=== PATIENT | female | born 1960 | race Caucasian/White ===

== ENCOUNTER 2021-01-23 22:36 | Emergency (ER) | payer OTHER ==
[~2021-01-23 22:36] MED LIST: CLEOCIN300 MG PO
[2021-01-23 23:55] LABS: BASOPHIL 0.5 % (0-2); EOSINOPHIL 1.9 % (0-5); HCT 37.2 % (37.0-47.0); HGB 12.1 g/dl (12.5-16.0); LYMPHOCYTE 19.6 % (15-48); MCH 27.9 pg (25.0-31.0); MCHC 32.5 g/dL (32.0-36.0); MCV 85.9 fL (78.0-100.0); NEUTROPHIL 68.6 % (41-80); NRBC 0; PLT 289 K/uL (150-400); RBC 4.33 M/uL (4.20-5.40); RDW 13.1 % (11.5-14.0); WBC 12.8 K/uL (4.0-10.5)
[2021-01-24 00:31] LABS: ALBUMIN 2.8 g/dL (3.4-5.0); BILIRUBIN - TOTAL 0.3 mg/dL (0.2-1.0); BUN/CREAT RATIO (CALC) 21.4 RATIO; CREATININE 0.7 mg/dL (0.51-0.95); GLOBULIN (CALCULATION) 4.2 g/dL; POTASSIUM 3.5 mmol/L (3.5-5.1)
[2021-01-24 00:40] LABS: LACTIC ACID 2.1 mmol/L (0.4-1.9)
[2021-01-24] MEDS ORDERED: NORCO 5-325 TA1 EACH PO (01:34)
[2021-01-24] MEDS ORDERED: BACTRIM DS TAB1 EAC1 PO (01:34)
[2021-01-24] MEDS ORDERED: CEPHALEXIN500 M1 PO (01:34)
== END 2021-01-24 02:00 | disposition home or self-care (01) ==
LOC: FER 22:36
PROVIDERS: Emergency Medicine Emergency Medical Services
DX: E11.621 Type 2 diabetes mellitus with foot ulcer (principal); L97.511 Non-pressure chronic ulcer of other part of right foot limited to breakdown of skin; L97.419 Non-pressure chronic ulcer of right heel and midfoot with unspecified severity; L97.521 Non-pressure chronic ulcer of other part of left foot limited to breakdown of skin; L03.032 Cellulitis of left toe; L03.031 Cellulitis of right toe; L84 Corns and callosities; R60.0 Localized edema; I10 Essential (primary) hypertension; Z88.0 Allergy status to penicillin; Z79.4 Long term (current) use of insulin
CPT/HCPCS: 36415; 73620; 80053; 83605; 84145; 85025; J1170; J1885; J2405; J3370; J7050

== ENCOUNTER 2021-01-26 16:04 | Emergency (ER) | payer OTHER ==
[~2021-01-26 16:04] MED LIST changes: +BACTRIM DS TAB1 EAC1 PO; +CEPHALEXIN500 M1 PO; +NORCO 5-325 TA1 EACH PO
[2021-01-26 19:11] LABS: BASOPHIL 0.5 % (0-2); EOSINOPHIL 1.7 % (0-5); HCT 36.4 % (37.0-47.0); HGB 11.8 g/dl (12.5-16.0); LYMPHOCYTE 16.7 % (15-48); MCHC 32.4 g/dL (32.0-36.0); MCV 86.5 fL (78.0-100.0); MONOCYTE 11.4 % (0-12); MPV 9.3 fL (6.0-9.5); NEUTROPHIL 69.3 % (41-80); NRBC 0; PLT 286 K/uL (150-400); RBC 4.21 M/uL (4.20-5.40); RDW 13.1 % (11.5-14.0); WBC 11.9 K/uL (4.0-10.5)
[2021-01-26 19:33] LABS: ALBUMIN 2.6 g/dL (3.4-5.0); BILIRUBIN - TOTAL 0.3 mg/dL (0.2-1.0); CREATININE 0.8 mg/dL (0.51-0.95); GLOBULIN (CALCULATION) 4.6 g/dL; TOTAL PROTEIN 7.2 g/dL (6.4-8.2)
== END 2021-01-26 21:02 | disposition home or self-care (01) ==
LOC: FER 16:04
PROVIDERS: Physician Assistant
DX: S92.511A Displaced fracture of proximal phalanx of right lesser toe(s), initial encounter for closed fracture (principal); L03.115 Cellulitis of right lower limb; M86.8X7 Other osteomyelitis, ankle and foot; I10 Essential (primary) hypertension; E11.9 Type 2 diabetes mellitus without complications; Z88.0 Allergy status to penicillin; X58.XXXA Exposure to other specified factors, initial encounter
CPT/HCPCS: 36415; 73630; 80053; 85025

== ENCOUNTER 2021-07-02 01:52 | Emergency (ER) | payer OTHER ==
[2021-07-02 02:14] LABS: BASOPHIL 0.6 % (0-2); EOSINOPHIL 2.7 % (0-5); HCT 40.3 % (37.0-47.0); HGB 13.1 g/dl (12.5-16.0); LYMPHOCYTE 38.5 % (15-48); MCH 28.1 pg (25.0-31.0); MCHC 32.5 g/dL (32.0-36.0); MCV 86.5 fL (78.0-100.0); MONOCYTE 9.3 % (0-12); MPV 10.5 fL (6.0-9.5); NEUTROPHIL 48.5 % (41-80); NRBC 0; PLT 238 K/uL (150-400); RBC 4.66 M/uL (4.20-5.40); RDW 12.4 % (11.5-14.0); WBC 9.7 K/uL (4.0-10.5)
[2021-07-02 02:58] LABS: ALBUMIN 3.1 g/dL (3.4-5.0); BILIRUBIN - TOTAL 0.2 mg/dL (0.2-1.0); BUN/CREAT RATIO (CALC) 20.5 RATIO; CREATININE 0.78 mg/dL (0.51-0.95); GLOBULIN (CALCULATION) 3.5 g/dL; POTASSIUM 3.5 mmol/L (3.5-5.1); TOTAL PROTEIN 6.6 g/dL (6.4-8.2)
[2021-07-02 03:08] LABS: INR 1.08 (0.9-1.2); PROTHROMBIN TIME 13.4 SECONDS (11.8-13.4); PTT 20.6 SECONDS (24.4-34.7)
== END 2021-07-02 04:00 | disposition other institution (70) ==
LOC: FER 01:52
PROVIDERS: Emergency Medicine Emergency Medical Services
DX: I45.9 Conduction disorder, unspecified (principal); E11.9 Type 2 diabetes mellitus without complications; I10 Essential (primary) hypertension; Z79.4 Long term (current) use of insulin; Z88.0 Allergy status to penicillin; Z88.1 Allergy status to other antibiotic agents
CPT/HCPCS: 36415; 71045; 71275; 80053; 84484; 85025; 85610; 85730; 93005; J1644; J3010; J3101; J7030; Q9967

== ENCOUNTER 2021-08-18 09:54 | Emergency (ER) | payer OTHER ==
[2021-08-18 10:21] LABS: BASOPHIL 0.8 % (0-2); EOSINOPHIL 3.1 % (0-5); HCT 43.7 % (37.0-47.0); HGB 14.4 g/dl (12.5-16.0); LYMPHOCYTE 21.5 % (15-48); MCH 28.3 pg (25.0-31.0); MCV 85.9 fL (78.0-100.0); MONOCYTE 6.9 % (0-12); NRBC 0; PLT 270 K/uL (150-400); RBC 5.09 M/uL (4.20-5.40); RDW 13.2 % (11.5-14.0); WBC 7.4 K/uL (4.0-10.5)
[2021-08-18 10:22] LABS: INR 1.04 (0.9-1.2); PTT 25.1 SECONDS (24.4-34.7)
[2021-08-18 10:36] LABS: ALBUMIN 3.4 g/dL (3.4-5.0); BILIRUBIN - TOTAL 0.6 mg/dL (0.2-1.0); BUN/CREAT RATIO (CALC) 17.8 RATIO; CREATININE 0.73 mg/dL (0.51-0.95); POTASSIUM 4.4 mmol/L (3.5-5.1); TOTAL PROTEIN 7.4 g/dL (6.4-8.2)
[2021-08-18] MEDS ORDERED: NAPROXEN250 MG PO (14:15)
== END 2021-08-18 14:49 | disposition home or self-care (01) ==
LOC: FER 09:54
PROVIDERS: Emergency Medicine
DX: I24.1 Dressler's syndrome (principal); I25.2 Old myocardial infarction; I25.10 Atherosclerotic heart disease of native coronary artery without angina pectoris; E11.9 Type 2 diabetes mellitus without complications; Z95.5 Presence of coronary angioplasty implant and graft; Z88.0 Allergy status to penicillin; Z88.1 Allergy status to other antibiotic agents
CPT/HCPCS: 36415; 71045; 80053; 84484; 85025; 85379; 85610; 85730; 93005